=== PATIENT | female | born 1980 | race Caucasian/White ===

== ENCOUNTER 2017-04-03 10:50 | Emergency (ER) | payer OTHER ==
--- NOTE | 2017-04-09 17:58 | ER ---
ADMIT: 04/03/2017 RM/LOC: ER [facility] MR#: [id number] [address] [facility] [address] [place], [place] [address] [address] [place] [id number] Emergency Room Report SEX: F AGE: 36 : 1980 DATE: 04/03/2017 CHIEF COMPLAINT: "Cannot sleep." HISTORY OF PRESENT ILLNESS: A 36-year-old female, who presents with 3-day duration of inability to sleep, feeling depressed, tired, unable to eat. States she had a of a very close friend on Tuesday. Since then, she has been making arrangements and feels like she needs to be strong at this time. She is shouldering much of the responsibility of the . States she has never had problems with depression in the past, but she just feels like she cannot continue how she has been going. She has not slept in the last three days. She denies any suicidal thoughts or actions. No history of any psychiatric issues. Admits to some nausea. On Ortho Tri-Cyclen for control. COURSE IN ER: GENERAL: The patient is seen and examined. She is afebrile and nontoxic. She is quite anxious and depressed. She is tearful with the conversation. She is alert. She is oriented. She is depressed. EYES: Eyes are equal and reactive. LUNGS: No respiratory distress. Breath sounds equal bilaterally. HEART: Regular rate and rhythm. ABDOMEN: Soft and nontender. SKIN: Warm and dry. We did have a discussion today about how likely this is secondary to the great stress she is having in her life. Her current symptoms are quite typical of grief reaction. I did encourage her to seek out those who are close to her and she states she is quite introverted and has not necessarily asked for help or had time to deal with her depression at this point. I did offer her to speak with the [employer] today. She states she just wants to go home and sleep. Given her situation, I did give her a prescription for Xanax 0.25 mg p.o. t.i.d. as ADMIT: 04/03/2017 RM/LOC: [facility] MR#: [id number] [id number] [place], [place] [id number] [address] [place] [address] Emergency Room Report SEX: F AGE: 36 : 1980 needed for anxiety #12. She is to follow up with Dr. Tena if she continues to have problems. She is to continue to have conversations with those around her as she is not the only one who needs to be dealing with the stress of the situation right now. IMPRESSION: Grief reaction with depression. DISPOSITION: The patient will be started on Xanax 0.25 mg p.o. t.i.d. #12. Follow up Dr. Tena as needed. I encouraged her to seek out a grief counselor as needed, certainly return with any suicidal thoughts. Questions sought and answered to the best of ability and to the patient's satisfaction. Discharged in stable condition. AME Barrera / Anatoly Peres MD / marielosl JOB #: [id number] CC: Anatoly Peres MD, Attending Physician Rod Tena MD, Family Physician
== END 2017-04-03 12:53 | disposition home or self-care (01) ==
LOC: ER 10:50
DX: F43.21 Adjustment disorder with depressed mood (principal); F43.9 Reaction to severe stress, unspecified; Z79.899 Other long term (current) drug therapy